=== PATIENT | male | born 1955 | race Caucasian/White ===

== ENCOUNTER 2019-09-09 20:41 | Emergency (ER) | payer SELFPAY ==
[~2019-09-09] VITALS: Ht 177.8 cm; Wt 78.5 kg
[2019-09-09] MEDS ORDERED: FUROSEMIDE 20 MG TABLET PO ONE (21:15)
[2019-09-09] MEDS ORDERED: POTASSIUM CHLORIDE 20 MEQ TAB.PRT.SR PO ONE (21:15)
[2019-09-09] MEDS ORDERED: SULFAMETH/TRIMETH 800/160 MG TABLET PO ONE (21:15)
[2019-09-09] MEDS ORDERED: POTASSIUM CHLORIDE 20 MEQ TAB.PRT.SR ONE (21:19)
[2019-09-09] MEDS ORDERED: FUROSEMIDE 20 MG TABLET ONE (21:19)
[2019-09-09] MEDS ORDERED: SULFAMETH/TRIMETH 800/160 MG TABLET ONE (21:19)
[2019-09-09 21:32] LABS: BASOPHILS # (AUTO) 0.2 K/uL (0.0-8.0); EOSINOPHILS # (AUTO) 0.2 K/uL (0.0-0.7); EOSINOPHILS % (AUTO) 1.4 % (0.0-7.0); HEMATOCRIT 37.5 % (36.7-47.1); HEMOGLOBIN 12.3 g/dL (12.5-16.3); LYMPHOCYTES % (AUTO) 11.2 % (20.5-51.5); MEAN CORPUSCULAR HEMOGLOBIN 27.6 uug (23.8-33.4); MEAN CORPUSCULAR HGB CONC 33 g/dL (32.5-36.3); MEAN CORPUSCULAR VOLUME 84.3 fL (73.0-96.2); MONOCYTES # (AUTO) 1.6 K/uL (2.0-10.0); NEUTROPHILS # (AUTO) 13.7 K/uL (1.8-8.9); NEUTROPHILS % (AUTO) 77.4 % (38.5-71.5); PLATELET COUNT (AUTO) 697 K/uL (152-348); RED BLOOD CELL COUNT(AUTO) 4.45 MIL/uL (4.06-5.63); WHITE BLOOD COUNT (AUTO) 17.7 K/uL (3.6-10.2)
[2019-09-09 21:37] LABS: CREATININE 1.3 mg/dL (0.6-1.3)
[2019-09-09 21:53] LABS: BILIRUBIN,DIRECT 0.1 mg/dL (0.0-0.2); BILIRUBIN,TOTAL 0.2 mg/dL (0.2-1.0); TOTAL PROTEIN, SERUM 7.5 g/dL (6.4-8.2)
[2019-09-09 21:56] LABS: BAND % (MANUAL) 8 % (0-10); EOSINOPHILS % (MANUAL) 2 % (0-8); LYMPHOCYTES % (MANUAL) 12 % (20-40); METAMYELOCYTES % 6 % (0-1); MONOCYTES % (MANUAL) 3 % (2-10); MYELOCYTES % 1 % (0-0); NEUTROPHILS % (MANUAL) 68 % (42-75)
--- NOTE | 2019-09-09 22:02 | NUR ---
Patient discharged to home in stable condition. Written and verbal after care instructions given. Patient verbalizes understanding of instructions. Stressed follow up or return to ER for worsening s/s. Pt left ER in stable condition. No acute distress noted. Vital signs stable. Respirations even & unlabored.
[2019-09-09 22:03] VITALS: BP 138/99
== END 2019-09-09 22:03 | disposition home or self-care (01) ==
LOC: ER 20:45
DX: R60.0 Localized edema (principal); L76.34 Postprocedural seroma of skin and subcutaneous tissue following other procedure; E66.01 Morbid (severe) obesity due to excess calories; K42.9 Umbilical hernia without obstruction or gangrene; I45.10 Unspecified right bundle-branch block
CPT/HCPCS: 36415; 70030-TC; 71045; 85025; 85610; 93005; A4663